=== PATIENT | female | born 1950 | race Caucasian/White ===

== ENCOUNTER 2018-04-10 12:00 | Outpatient (CLI) | payer MEDICARE, OTHER, SELFPAY ==
[2018-04-10 13:12] LABS: TSH 6.25 uIU/mL (0.358-3.74)
== END 2018-04-10 12:20 ==
PROVIDERS: PCP Nurse Practitioner Adult Health; Visit Provider Nurse Practitioner Adult Health
DX: E03.9 Hypothyroidism, unspecified (principal)
CPT/HCPCS: 36415; 84443

== ENCOUNTER 2018-04-16 13:57 | Outpatient (CLI) | payer MEDICARE, OTHER, SELFPAY ==
--- NOTE | 2018-04-16 12:30 | DI.CT_ITS ---
SYMPTOMS/DIAGNOSIS: NEPHROLITHIASIS, N20.0 CT OF THE ABDOMEN AND PELVIS: Small regions of scarring are noted in the right lung base. No acute abnormality is seen. The liver, gallbladder, pancreas and spleen are intact. Innumerable bilateral renal calculi are demonstrated. A small area of radiolucency involving the posterior left renal cortex likely represents a cyst. A left extra-renal pelvis is identified and there is moderate hydronephrosis and hydroureter and there is a 6 x 8 mm calculus in the distal left ureter. The bladder is intact. There is no evidence of right hydronephrosis or hydroureter or ureterolithiasis. There is radiopaque material in a stomach containing fluid and particulate matter. There is no evidence of bowel obstruction. There is nothing to suggest an acute appendix. There is no evidence of free air or free fluid in the intraperitoneal space. The reproductive organs as visualized appear intact. There is a tiny fat containing umbilical hernia. Degenerative changes are noted involving the lower dorsal and lumbar spine. No acute bony abnormality is seen. SUMMARY: There is bilateral nephrolithiasis and moderate left hydronephrosis secondary to a distal left ureteral calculus which measures approximately 6 x 8 mm. Please see the above discussion.
== END 2018-04-16 14:17 ==
PROVIDERS: PCP Nurse Practitioner Adult Health; Visit Provider Urology
DX: N13.30 Unspecified hydronephrosis (principal); N20.0 Calculus of kidney; N20.1 Calculus of ureter
CPT/HCPCS: 74176

== ENCOUNTER 2018-04-23 10:42 | Outpatient (CLI) | payer MEDICARE, OTHER, SELFPAY ==
[2018-04-23 11:15] LABS: Bilirubin Negative (Negative); Blood Trace-intact (Negative); Clarity Cloudy; Glucose Negative (Negative); Ketones Negative (Negative); Leukocyte Esterase Negative (Negative); Nitrite Negative (Negative); Urobilinogen 0.2 EU/dL (Up TO 0.2); pH 8.5 (5-8)
[2018-04-23 11:31] LABS: Bacteria Moderate HPF (Negative); C & S Indicated? C&S Done As Ordered; Casts Negative LPF (Negative); Crystals Moderate Amorphous HPF (Negative); Epithelial Cells Moderate HPF (Negative); Mucus Negative (Negative); Other Cells Few Renal (Negative); WBC 0-2 HPF (0-5)
== END 2018-04-23 11:02 ==
PROVIDERS: PCP Nurse Practitioner Adult Health; Visit Provider Urology
DX: N20.0 Calculus of kidney (principal); Z01.818 Encounter for other preprocedural examination
CPT/HCPCS: 81003; 81015; 87086

== ENCOUNTER 2018-05-19 06:09 | Day surgery (SDC) | payer MEDICARE, OTHER, SELFPAY ==
[2018-05-19 06:27] VITALS: BP 121/62; PULSE 65; RESP 18; TEMP 35.5; O2SAT 96
--- NOTE | 2018-05-19 06:27 | W.COLOREPORT ---
Colonoscopy Report Date of procedure: 05/19/18 Pre-op diagnosis general: Screening colonoscopy Post-op diagnosis procedure note: other (Internal hemorrhoids, transverse polyp) Procedure: Colonoscopy with polypectomy by cold forceps Surgeon: Leticia Starkey Anesthesia proc note operative: MAC (Rachel Figueroa CRNA) Estimated blood loss (mL): 2 Pathology: other (transverse colon polyp) Complications: None Disposition: same day Indications: Mrs. Fall is a 67-year-old female who was seen in the office for a screening colonoscopy. She underwent attempted colonoscopy in February but her prep was not clear. She noted a 2-day prep and is back for a screening colonoscopy. Her last colonoscopy was 2007 and was normal. Risks, benefits and complications were again reviewed with her and she wished to proceed. No guarantees were given or implied. Prep: Other (Mag Citrate and Miralax/Dulcolax) Procedure Start Time: 07:40 Procedure End Time: 08:05 Retraction Time: 13 minutes Findings: Small grade I internal hemorrhoids Small less the 1 cm sessile polyp in the transverse colon Procedure Description: After informed consent was obtained the patient was taken to the procedure room and placed in a left decubitous position. Monitors were applied and a time out was done. The patients name, date of , procedure, allergies to medications and metal in their body was reviewed. The patient was then sedated. Once sedated and comfortable a rectal exam was done. External exam was normal. Internal exam revealed a normal sphincter tone and no palpable masses. The scope was then introduced and retroflexed. Grade I internal hemorrhoids were identified. The scope was then advanced to the cecum without difficulty. The TI and appendiceal orifice were identified. The prep was adequate. The scope was then slowly retracted over 13 minutes back into the rectum. One polyp was removed with cold forceps in the transverse colon. The scope was removed and the patient was woken up and taken back to Same day surgery in stable condition. The patient tolerated the procedure well and there were no immediate complications. Follow up: The patient should follow up in 3-5 years unless they develop changes in bowel habits or other new gastrointestinal complaints.
--- NOTE | 2018-05-19 06:44 | PDOC.DSDIS_ITS ---
Discharge Plan Disposition Patient Disposition: HOME Condition: Good Discharge Details Reason For Visit: SCREENING Attending Provider: Leticia Starkey Primary Care Provider: Jakub Santos Home Meds and New Rx's Prescriptions: Continue indapamide 1.25 mg tablet 1.25 mg PO QAM RF: 0 hydrocodone-acetaminophen 1 EACH tablet 1 tab-cap PO Q6H PRN RF: 0 levothyroxine 75 MCG tablet 75 mcg PO DAILY RF: 0 Buspirone HCl 5 MG tablet 5 mg PO DAILY RF: 0 venlafaxine [Effexor XR] 75 MG capsule,extended release 24hr 75 mg PO DAILY RF: 0 venlafaxine [Effexor XR] 150 MG capsule,extended release 24hr 150 mg PO DAILY RF: 0 potassium chloride [Klor-Con M20] 20 MEQ tablet,ER particles/crystals 20 mg PO DAILY RF: 0 cyclobenzaprine 10 MG tablet 10 mg PO Q8H PRN PRN (Reason: Pain) Qty: 20 RF: 0 Discontinued polyethylene glycol 3350 255 GM powder 255 gm PO as directed for colo Qty: 255 RF: 0 bisacodyl [Correctol] 5 MG tablet 5 mg PO take as directed Qty: 4 RF: 0 Discharge Instructions Instructions: Colonoscopy (DC), Hemorrhoids (DC), Colorectal Polyps (DC) Additional Instructions: Findings: small internal hemorrhoids small, most likely benign polyp Follow up: 10 years ? New Medications: none Please call if you develop: fevers >101.5 Nausea or Vomiting Abdominal pain that is not transient Shortness of breath DAY SURGERY UNIT POST COLONOSCOPY INSTRUCTIONS 1. Because there will be medication in your system for the next 24 hours, you may feel a little sleepy. Your coordination will be affected. Therefore: a. Do not drive or operate dangerous equipment for 24 hours. b. Do not drink alcohol beverages for 24 hours (not even beer). c. Plan to go home and rest for the day. 2. Generally there are no restrictions on your activity after a day or so has gone by, but you may feel a bit fatigued for a few days. 3 After you arrive home you may have a light meal and return to a normal diet as you can tolerate it without feeling sick to your stomach. 4. After surgery, you may feel pain or discomfort. This should be only transient , but if it persists please contact your doctor. 5. If there are any questions regarding the findings of your procedure, please feel free to contact your doctor. 6. If you are unable to contact your doctor with a problem, contact the hospital at [phone]. 7. Continue all your regular medications unless directed otherwise. I understand the above instructions and have no questions. Signature of Patient or Responsible Adult Escort Date/Time Name of Responsible Adult Escort Signature of Nurse Date/Time Activity:: Activity as Tolerated Diet:: As Tolerated Discharge Orders Discharge Orders: Discharge Order (Routine); Ordered 05/19/18 Ordered By: Leticia Starkey DS: Diagnosis Discharge Diagnosis (1) Internal hemorrhoids: Status: Acute (2) Colorectal polyp detected on colonoscopy: Status: Acute
[2018-05-19] MEDS: Lactated Ringers 1,000 ML 80 ML IV (06:45)
--- NOTE | 2018-05-19 07:55 | BOWEL_PTH ---
PATIENT: Flory Fall LOC: [facility] U#:[id number] AGE/SX: 67/F ROOM: RE05/19/[address]: Leticia Starkey MD : [id number] BED: DIS: 05/19/2018 SPEC #: [id number] RECD: 05/19/18 12:53 STATUS: LATISHA REQ #: [id number] BELINDA: 05/19/18 07:[address]: Leticia Starkey DEPT: Surgical Specimen RECD BY: Shannon Staton ENTERED: 05/19/18 12:55 SP TYPE: Bowel OTHR DR: Jakub Santos Tissues: 1 - BIOPSY BOWEL Procedures: GROSS AND MICRO LEVEL 4 Comments: [id number]
[2018-05-19 08:45] VITALS: BP 100/60; PULSE 50; RESP 16; TEMP 35.8; O2SAT 96
== END 2018-05-19 08:45 | disposition home or self-care (01) ==
PROVIDERS: PCP Nurse Practitioner Adult Health; Visit Provider Surgery
PROC: 0DJD8ZZ Inspection of Lower Intestinal Tract, Via Natural or Artificial Opening Endoscopic (ICD-10-PCS; CPT 45378; principal; 2018-05-19 07:30)
DX: Z12.11 Encounter for screening for malignant neoplasm of colon (principal); D12.3 Benign neoplasm of transverse colon; K64.0 First degree hemorrhoids
CPT/HCPCS: 45380; 88305

== ENCOUNTER 2018-05-27 09:22 | Outpatient (CLI) | payer MEDICARE, OTHER, SELFPAY ==
[2018-05-27 10:53] LABS: ALT 31 U/L (12-78); AST 24 U/L (15-37); Alkaline Phosphatase 97 U/L (46-116); Anion Gap 8.5 mmol/L (3-11); BUN 17 mg/dL (7-18); Bilirubin, Total 0.5 mg/dL (0.2-1.0); CO2 30.5 mmol/L (21.0-32.0); CREATININE 0.91 mg/dL (0.55-1.02); Calcium 9.4 mg/dL (8.5-10.1); Chloride 101 mmol/L (98-107); Cholesterol 212 mg/dL (50-200); Glucose 100 mg/dL (70-100); HDL Cholesterol 59 mg/dL (40-60); LDL CHOLESTEROL 135 mg/dL (<100); Potassium 3.4 mmol/L (3.5-5.1); Sodium 140 mmol/L (136-145); TSH (W/Ref FT4) 4.02 uIU/mL (0.358-3.74); Total Protein 7.7 g/dL (6.4-8.2); Triglyceride 99 mg/dL (30-150)
== END 2018-05-27 09:42 ==
PROVIDERS: PCP Nurse Practitioner Adult Health; Visit Provider Nurse Practitioner Adult Health
DX: E78.00 Pure hypercholesterolemia, unspecified (principal); R53.83 Other fatigue; E87.6 Hypokalemia; E03.9 Hypothyroidism, unspecified
CPT/HCPCS: 36415; 80053; 80061; 83721; 84439; 84443

== ENCOUNTER 2018-07-23 15:34 | Outpatient (CLI) | payer MEDICARE, OTHER, SELFPAY ==
[2018-07-23 17:34] LABS: TSH 0.13 uIU/mL (0.358-3.74)
[2018-07-28 17:20] LABS: Thyroid Stimulating Immunoglob <1.0 TSI index (<=1.3)
== END 2018-07-23 15:54 ==
PROVIDERS: PCP Nurse Practitioner Adult Health; Visit Provider Nurse Practitioner Adult Health
DX: E03.9 Hypothyroidism, unspecified (principal)
CPT/HCPCS: 36415; 84443; 84445

== ENCOUNTER 2018-08-25 02:09 | Outpatient (CLI) | payer MEDICARE, OTHER, SELFPAY ==
[2018-08-25 12:08] LABS: TSH 0.23 uIU/mL (0.358-3.74)
== END 2018-08-25 02:29 ==
PROVIDERS: PCP Nurse Practitioner Adult Health; Visit Provider Nurse Practitioner Adult Health
DX: E03.9 Hypothyroidism, unspecified (principal)
CPT/HCPCS: 36415; 84443

== ENCOUNTER 2018-10-19 10:04 | Outpatient (CLI) | payer MEDICARE, OTHER, SELFPAY ==
[2018-10-19 11:42] LABS: Cholesterol 165 mg/dL (50-200); HDL Cholesterol 54 mg/dL (40-60); LDL CHOLESTEROL 95 mg/dL (<100); TSH 0.33 uIU/mL (0.358-3.74); Triglyceride 83 mg/dL (30-150)
== END 2018-10-19 10:24 ==
PROVIDERS: PCP Nurse Practitioner Adult Health; Visit Provider Nurse Practitioner Adult Health
DX: E03.9 Hypothyroidism, unspecified (principal)
CPT/HCPCS: 36415; 80061; 83721; 84443

== ENCOUNTER 2019-03-31 15:07 | Emergency (ER) | payer MEDICARE, OTHER, SELFPAY ==
[2019-03-31 15:09] VITALS: BP 117/94; PULSE 62; RESP 16; TEMP 36.6; O2SAT 99
--- NOTE | 2019-03-31 15:23 | DI.CT_ITS ---
SYMPTOM/DIAGNOSIS: LEFT FLANK PAIN ABDOMINAL AND PELVIC CT: 03/31 CT examination of the abdomen and pelvis was performed without contrast administration. Images obtained through the lung bases are unremarkable. The visualized portions of the liver and spleen appear normal as does the pancreas. Gallbladder and bile ducts are CT normal. Abdominal aorta is of normal diameter. No significant abdominal wall hernia with a tiny fat containing umbilical hernia noted. No abdominal or pelvic adenopathy. Adrenals appear normal bilaterally. Appendix is normal. No evidence of diverticulitis or bowel obstruction. There appears to be some free fluid in the pelvis. There is marked right hydronephrosis and hydroureter. There is an obstructing 6-8 mm in diameter stone in the right mid ureter and there is also a distal right ureteral stone measuring about 4 mm. No left ureteral calcification seen. No left hydronephrosis. Multiple intra renal calculi are noted bilaterally. CONCLUSION: Obstructing stones of the right ureter as described above, severe right hydronephrosis. Multiple bilateral renal calculi.
--- NOTE | 2019-03-31 15:23 | W.ED.GENAD ---
Discharge Plan Disposition Patient Disposition: HOME Condition: Stable Discharge Details Chief Complaint: FlankPain Clinical Impression: Kidney stone Primary Care Provider: Jakub Santos ED Provider: Jeffy Sabillon Home Meds and New Rx's Prescriptions: New ciprofloxacin HCl 500 mg tablet 500 mg PO BID Qty: 14 RF: 0 Continued indapamide 1.25 mg tablet 1.25 mg PO QAM RF: 0 hydrocodone-acetaminophen 1 EACH tablet 1 tab-cap PO Q6H PRN RF: 0 levothyroxine 75 MCG tablet 75 mcg PO DAILY RF: 0 Buspirone HCl 5 MG tablet 5 mg PO DAILY RF: 0 venlafaxine [Effexor XR] 75 MG capsule,extended release 24hr 75 mg PO DAILY RF: 0 venlafaxine [Effexor XR] 150 MG capsule,extended release 24hr 150 mg PO DAILY RF: 0 potassium chloride [Klor-Con M20] 20 MEQ tablet,ER particles/crystals 20 mg PO DAILY RF: 0 cyclobenzaprine 10 MG tablet 10 mg PO Q8H PRN PRN (Reason: Pain) Qty: 20 RF: 0 tamsulosin 0.4 mg Capsule 0.4 mg PO DAILY RF: 0 Discharge Instructions Instructions: Kidney Stones (ED) Additional Instructions: follow up with your urologist next week you can take 1000mg tylenol and 600mg ibuprofen every 6 hours for pain as needed if you develop high fevers, persistent vomit or severe worsening pain return to the emergency department Medical Decision Making 68 yo female with hx of kidney stones comes in with pain in the left flank and oblique area starting today. She had an MRI done on Friday at [facility] [place] which showed hydronephrosis on the right, she was having pain on that side at the time that has resolved. She states her pain she had earlier did feel like prior stones she has had. She took 1/2 tablet of hydrocodone and pain is now gone and hasno tenderness on abdominal exma to suggest entities such as diverticulitis, sbo or other surgical pathology. I discussed with her that this is likely a stone given her pain has gone away, she would like to have a CT regardless given the pain is now on the left and she was told by her kidney specialist she needs a CT. Will order this and monitor. pt remains pain free, actually has 2 obstructing stones in the right with hydro. Does have evidence of uti, no fevers or other symptoms to suggest sepsis due to infected stone. she has a urologist at [facility], I recommended following up with them next week and had the images pushed to [facility]. She was given return precations, already has hydrocodone and denies any need for new meds Differential Diagnosis kidney stone, constipation, diverticulitis Imaging Data Radiologic Study: Attestation: I personally reviewed and interpreted this imaging study as follows: Imaging: CT Scan Radiologist's impression: IMPRESSION: Severe right hydroureteronephrosis with obstructive 6 mm stone in the mid right ureter. 4 mm stone seen in the distal right ureter. Small amount of pelvic ascites. Mild constipation. Bilateral nonobstructive renal stones measuring up to 4 mm. Lab Data Lab results reviewed: Yes I reviewed the patient's lab results. HPI General Mode of arrival: ambulatory. Date/Time Provider Initiated Documentation: 03/31/19 15:07. Limitations to Documentation: no limitations. Information obtained by: patient. History of Present Illness 68 year old F presents to the emergency department with the chief complaint of left flank pain, described as moderate, Quality is described as stabbing, No relieving factors improve symptom(s), No exacerbating factors reported . Patient did receive the following treatments prior to arrival, other (hydrocodone) Related Data Home Medications Medication Instructions Recorded Confirmed cyclobenzaprine 10 mg PO Q8H PRN PRN #20 tab 04/30/17 03/31/19 potassium chloride [Klor-Con M20] 20 mg PO DAILY 04/30/17 03/31/19 venlafaxine [Effexor XR] 75 mg PO DAILY 04/30/17 03/31/19 venlafaxine [Effexor XR] 150 mg PO DAILY 04/30/17 03/31/19 Buspirone HCl 5 mg PO DAILY NS 03/06/18 03/31/19 hydrocodone-acetaminophen 1 tab-cap PO Q6H PRN tab-cap NS 03/06/18 03/31/19 levothyroxine 75 mcg PO DAILY tab-cap NS 03/06/18 03/31/19 indapamide 1.25 mg tablet 1.25 mg PO QAM 05/01/18 03/31/19 ciprofloxacin HCl 500 mg PO BID #14 tab 03/31/19 tamsulosin 0.4 mg PO DAILY 03/31/19 03/31/19 Previous Rx's Medication Instructions Recorded cyclobenzaprine 10 mg PO Q8H PRN PRN #20 tab 04/30/17 ciprofloxacin HCl 500 mg PO BID #14 tab 03/31/19 Allergies Allergy/AdvReac Type Severity Reaction Status Date / Time No Known Allergies Allergy Unverified 05/19/18 06:18 General Stated Complaint: FlankPain KEEGAN: 3 Review of Systems Review of Systems All systems reviewed & are unremarkable except as noted in HPI and below Constitutional Denies chills, Denies fever(s) and Denies weakness Cardiovascular Denies chest pain and Denies dyspnea Respiratory Denies cough and Denies dyspnea Gastrointestinal Denies vomiting Musculoskeletal Denies joint swelling Neurologic Denies weakness [facility] Surgical History (Updated 05/29/18 @ 09:25 by Cynthia Carreon RN) Colonoscopy planned (Acute ~05/19/18) Social History Smoking/Tobacco Use Status: Never Alcohol Intake: never Drug use: Daily Substance use type: marijuana Do you feel safe at home: Yes Do you feel safe in your relationship?: Yes Exam Const General: no acute distress Orientation: alert HENMT Head: normal to inspection Ears: external ears normal General nose exam: external nose normal Mouth: moist mucous membranes Eyes General: appearance normal, both eyes and all related structures Neck Neck: normal visual inspection Resp Effort & Inspection: normal respiratory effort and able to speak in complete sentences Cardio Rate: regular rate GI Palpation: soft Skin General skin exam: no rashes or lesions noted Neuro General: alert and oriented x3 Extrem General: normal to inspection Psych Mental Status: mental status grossly normal Course Vital Signs Temperature 36.6 C 03/31/19 15:09 Pulse 62 03/31/19 15:09 Respiratory Rate 16 03/31/19 15:09 Blood Pressure 117/94 H 03/31/19 15:09 Pulse Oximetry 99 03/31/19 15:09 Temperature 36.6 C 03/31/19 15:09 Temperature Source Skin 03/31/19 15:09 Pulse 62 03/31/19 15:09 Respiratory Rate 16 03/31/19 15:09 Respiratory Effort Non-Labored 03/31/19 15:14 Blood Pressure 117/94 H 03/31/19 15:09 Blood Pressure Position Sitting 03/31/19 15:09 Pulse Oximetry 99 03/31/19 15:09 Oxygen Delivery Method Room Air 03/31/19 15:09 Oxygen Flow Rate 0 03/31/19 15:09 Pain Level 2 03/31/19 15:09 Comment 03/31/19 15:09
[2019-03-31 16:13] LABS: Bilirubin Negative (Negative); Blood Trace-intact (Negative); Clarity Cloudy (Clear); Glucose Negative (Negative); Ketones Negative (Negative); Leukocyte Esterase Moderate (Negative); Nitrite Positive (Negative); Specific Gravity 1.015 (1.005-1.025); Urobilinogen 0.2 EU/dL (Up TO 0.2); pH 8.5 (5-8)
[2019-03-31 16:29] LABS: Bacteria Many HPF (Negative); C & S Indicated? Yes; Casts Negative LPF (Negative); Crystals Negative HPF (Negative); Epithelial Cells Few HPF (Negative); Mucus Negative (Negative); RBC 20-50 (0-2); WBC >50 HPF (0-5)
--- NOTE | 2019-03-31 16:56 | DI.VRAD_ITS ---
EXAM: CT Abdomen and Pelvis Without Contrast EXAM DATE/TIME: 03/31/2019 4:37 PM CLINICAL HISTORY: 68 years old, female; Other: Left flank pain TECHNIQUE: Imaging protocol: Computed tomography of the abdomen and pelvis without contrast. Radiation optimization: All CT scans at this facility use at least one of these dose optimization techniques: automated exposure control; mA and/or kV adjustment per patient size (includes targeted exams where dose is matched to clinical indication); or iterative reconstruction. COMPARISON: No relevant prior studies available. FINDINGS: Liver: Normal. No mass. Gallbladder and bile ducts: Normal. No calcified stones. No ductal dilation. Pancreas: Normal. No ductal dilation. Spleen: Normal. No splenomegaly. Adrenals: Normal. No mass. Kidneys and ureters: Severe right hydroureteronephrosis with obstructive 6 mm stone in the mid right ureter. 4 mm stone seen in the distal right ureter. Bilateral nonobstructive renal stones measuring up to 4 mm. Stomach and bowel: Mild constipation. Appendix: Unable to identify the appendix. Intraperitoneal space: Small amount of pelvic ascites. Vasculature: Aortic atherosclerosis. Lymph nodes: Unremarkable. No enlarged lymph nodes. Bladder: Unremarkable as visualized. Reproductive: Unremarkable as visualized. Bones/joints: Degenerative changes in the spine. Soft tissues: Small umbilical hernia containing fat, uncomplicated. IMPRESSION: Severe right hydroureteronephrosis with obstructive 6 mm stone in the mid right ureter. 4 mm stone seen in the distal right ureter. Small amount of pelvic ascites. Mild constipation. Bilateral nonobstructive renal stones measuring up to 4 mm. Dictated and Authenticated by: Javier Ruvalcaba MD. Ordering:FRANKY Bardales MD
[2019-03-31 17:24] VITALS: BP 121/76; PULSE 62; RESP 20; TEMP 37; O2SAT 96
== END 2019-03-31 17:21 | disposition home or self-care (01) ==
PROVIDERS: Emergency Provider Emergency Medicine; PCP Nurse Practitioner Adult Health
DX: N39.0 Urinary tract infection, site not specified (principal); N13.2 Hydronephrosis with renal and ureteral calculous obstruction; Z87.442 Personal history of urinary calculi
CPT/HCPCS: 87077; 99284; 74176; 81003; 81015; 87086; 87186

== ENCOUNTER 2021-02-08 13:23 | Outpatient (REF) | payer MEDICARE, OTHER, SELFPAY ==
[2021-02-08 15:41] LABS: Mono Screening Negative (Negative)
[2021-02-09 12:06] LABS: Lyme Ab w Rflx to Lyme Confirm Negative (Negative)
== END 2021-02-08 13:24 | disposition home or self-care (01) ==
LOC: LBN 13:23
PROVIDERS: PCP Nurse Practitioner Adult Health; Visit Provider Physician Assistant Medical
DX: R53.83 Other fatigue (principal)
CPT/HCPCS: 86308; 86618

== ENCOUNTER → 2023-12-24 10:40 | Outpatient (CLI) | payer MEDICARE, OTHER, SELFPAY ==
--- NOTE | 2023-12-24 12:46 | DI.RAD_ITS ---
Exam(s) XR KNEE LT 4V AP,LAT,ANTWON,PAT EXAM: XR KNEE LT 4V AP,LAT,ANTWON,PAT CLINICAL HISTORY: PAIN LEFT KNEE M25.562. TECHNIQUE: 2D digital imaging was performed of the left knee. Four images were obtained. Merchant, AP, lateral and PA tunnel views were obtained. COMPARISON: No exams were available for comparison FINDINGS: BONES: No acute fracture is present. No bony destructive lesion is seen. There is an enthesophyte at the anterior patella. JOINTS: There is mild narrowing of the medial femoral tibial joint. Small osteophytes are seen at th e posterior patella. No joint effusion is seen. No loose body. SOFT TISSUE: Normal. IMPRESSION: Mild degenerative changes of the knee. DATA REPOSITORY: RADIATION DOSE DELIVERED:
== END ==
PROVIDERS: PCP Nurse Practitioner Adult Health
DX: M25.562 Pain in left knee (principal)
CPT/HCPCS: 73564

== ENCOUNTER 2025-01-24 14:06 | Emergency (ER) | payer MEDICARE, OTHER, SELFPAY ==
[2025-01-24 14:09] VITALS: BP 144/81; PULSE 60; RESP 16; TEMP 36.3; O2SAT 94
--- NOTE | 2025-01-24 14:27 | W.ED.GENAD ---
Discharge Plan Disposition Patient Disposition: Home Condition: Stable Discharge Details Clinical Impression: Fracture of wrist Primary Care Provider: Alisson,[facility] ED Provider: Christine Keating Home Meds and New Rx's Prescriptions: New hydrocodone-acetaminophen 5-325 mg tablet 1 tab PO Q8H PRNQty: 10 0RF No Action indapamide 1.25 mg tablet 1.25 mg PO QAM hydrocodone-acetaminophen 1 EACH tablet 1 tab-cap PO Q6H PRN levothyroxine 75 MCG tablet 75 mcg PO DAILY Buspirone HCl 5 MG tablet 5 mg PO DAILY venlafaxine [Effexor XR] 75 MG capsule,extended release 24hr 75 mg PO DAILY potassium chloride [Klor-Con M20] 20 MEQ tablet,ER particles/crystals 20 mg PO DAILY tamsulosin 0.4 mg Capsule 0.4 mg PO DAILY raloxifene 60 mg tablet 60 mg PO DAILY Discharge Instructions Instructions: Forearm and Wrist Fractures ED, How to care for a splint Additional Instructions: Please follow-up with orthopedic clinic back home in [place]. For milder pain take Tylenol and ibuprofen. Apply an ice pack to help minimize pain and swelling. I have sent a prescription for narcotic medication to the pharmacy in [facility]. In the meantime while in town if pain does get worse or develop any new or concerning symptoms return to the emergency department for reevaluation. HPI General Date/Time Provider Initiated Documentation: 01/24/25 14:09. HPI Narrative: The patient is a 74-year-old female with prior history of kidney stones who comes the emergency department for right wrist injury. The patient reports that just prior to emergency room arrival she stepped out of her vehicle onto an uneven ground which caused her to lose balance. Reports that she took a misstep and fell. Reports he is not really sure how she injured her wrist but maybe landed on it. Reports that she thinks she twisted her ankle also. Denies hitting her head or any loss of consciousness. Reports since then her right wrist has been bothering her. Reports her right ankle hurts a little bit but not too bad. Reports she was able to get up on her own and ambulated on scene. Denies taking any blood thinning medication. Denies numbness or tingling sensation to her right foot or right wrist. Reports that she has injured her right wrist before but never required surgery and never significantly injuring it. Patient is accompanied by her friend who reports the patient is otherwise acting at baseline. Denies injury elsewhere and states she was at her baseline health prior. Reports she did take a leftover hydrocodone just prior to emergency room arrival. Related Data Home Medications ?Medication ?Instructions ?Recorded ?Confirmed potassium chloride 20 mEq 20 mg PO DAILY 04/30/17 01/24/25 tablet,extended release(part/cryst) (Klor-Con M) Held on 01/24/25. Instructions: Changed by Provider venlafaxine 75 mg capsule,extended 75 mg PO DAILY 04/30/17 01/24/25 release 24 hr (Effexor XR) Buspirone HCl 5 mg PO DAILY 03/06/18 01/24/25 hydrocodone 5 mg-acetaminophen 325 1 tab-cap PO Q6H PRN 03/06/18 01/24/25 mg tablet levothyroxine 75 mcg tablet 75 mcg PO DAILY 03/06/18 01/24/25 indapamide 1.25 mg tablet 1.25 mg PO QAM 05/01/18 01/24/25 Held on 01/24/25. Instructions: Changed by Provider tamsulosin 0.4 mg capsule 0.4 mg PO DAILY 03/31/19 01/24/25 Held on 01/24/25. Instructions: Changed by Provider hydrocodone 5 mg-acetaminophen 325 1 tab PO Q8H PRN #10 tabs 01/24/25 mg tablet raloxifene 60 mg tablet 60 mg PO DAILY 01/24/25 01/24/25 Previous Rx's ?Medication ?Instructions ?Recorded hydrocodone 5 mg-acetaminophen 325 1 tab PO Q8H PRN #10 tabs 01/24/25 mg tablet Allergies Allergy/AdvReac Type Severity Reaction Status Date / Time No Known Allergies Allergy Unverified 01/24/25 14:14 General Stated Complaint: Orthopedic KEEGAN: 4 Review of Systems Narrative: Review of systems are negative except as mentioned. Exam Narrative Exam Narrative: General appearance: The patient is alert, has no immediate need for airway protection and no signs of toxicity. HEENT: Pupils are round, equal and reactive. Oral mucosal membranes are moist. Neck: No midline C-spine tenderness is noted to palpation. Respiratory: There are no retractions. Lungs are clear to auscultation. Cardiovascular: Regular in rate and rhythm. Radial pulses are intact and equal. Gastrointestinal: The abdomen is soft and nondistended with normal bowel sounds. Nontender to palpation throughout. Neurological: The patient is alert, awake and oriented x 3. Patient has intact sensation to light touch throughout the entire right upper extremity, right hand and the right foot. Extremities: No tenderness is noted to palpation and range of motion testing to the left lower extremity, left upper extremity, right shoulder, right elbow, right hip, right knee. She has no tenderness to palpation to the right thigh, leg, foot. Patient has tenderness palpation along the right lateral malleolus without limitation range of motion testing in all planes. She has strong right dorsalis pedis pulse and intact sensation to light touch throughout the entire right foot. The entire right foot is nontender to palpation throughout. The patient has obvious deformity to the right wrist. The range of motion testing to the right wrist is deferred secondary to discomfort. The right hand is nontender to palpation throughout the particular along the right anatomic snuffbox. All the digits of the right hand are nontender to palpation. She has intact under water assistant strength on the right. She has strong right radial pulse. Course Vital Signs Vital signs: Vital Signs Temperature 36.3 C L 01/24/25 14:09 Pulse 60 01/24/25 14:09 Respiratory Rate 16 01/24/25 14:09 Blood Pressure 144/81 H 01/24/25 14:09 Pulse Oximetry 94 01/24/25 14:09 Temperature 36.3 C L 01/24/25 14:09 Temperature Source Oral 01/24/25 14:09 Pulse 60 01/24/25 14:09 Respiratory Rate 16 01/24/25 14:09 Blood Pressure 144/81 H 01/24/25 14:09 Pulse Oximetry 94 01/24/25 14:09 Oxygen Delivery Method Room Air 01/24/25 14:09 Oxygen Flow Rate 0 01/24/25 14:09 Pain Level 5 01/24/25 14:09 Medical Decision Making I informed the patient of my recommendation for imaging studies. She agrees to imaging study of the right wrist and declined x-ray of her right ankle. She declined pain medication currently. She arrives with a ring on her right ring finger. We will try to remove this before imaging studies are obtained. The patient is found to have distal radial fracture with impaction and dorsal angulation and has ulnar styloid fracture. I did consult with Ortho on-call, Dr. Jackman. Recommended reduction. I did explain this to the patient and need for reduction. Dr. Jackman has been in to see the patient and reduce the patient's fracture himself. Recommended repeat x-ray and outpatient follow-up with business support specialist back home in [place]. We will give the patient a copy of her imaging studies. I asked her to take [id number] pain medication as needed but a prescription is sent also to her preferred pharmacy for more pain medication that she can take for worsening pain. She does have 2 prescription pills of [place] left and did request for more in the meantime. She is asked to apply an ice pack to help minimize pain and swelling as well. I told her in the meantime if she does get worse or develop any new or worsening symptoms such as uncontrollable pain, numbness, ting sensation, etc. to return to the emergency department immediately otherwise follow-up with business support specialist back home. Imaging Data Radiologic Study: Imaging: X-Ray (Wrist) Radiologist's impression: Distal radial fracture with some impaction and dorsal angulation. Ulnar styloid fracture. Radiologic Study #2: Imaging: X-Ray (Wrist x-ray, post reduction) Radiologist's impression: A cast has been placed. The previously noted posterior angulation of the distal radial fracture has been corrected. Ulnar styloid fracture again noted. PFSH All Active Problems (Updated 01/24/25 @ 17:16 by Christine Keating DO) Fracture of wrist (Acute) Colonoscopy planned (Acute ~05/19/18) Colorectal polyp detected on colonoscopy (Acute) Internal hemorrhoids (Acute) Encounter for screening colonoscopy (Acute) Current Visit YES Social History Smoking/Tobacco Use Status: Never Smoking risk assessment performed?: Yes Alcohol Intake: current Alcohol Intake frequency: a few times a week Drug use: Daily Substance use type: marijuana Housing: house Do you feel safe at home: Yes Do you feel safe in your relationship?: Yes
--- NOTE | 2025-01-24 15:06 | DI.RAD_ITS ---
Exam(s) XR WRIST RT COMPLETE EXAM: XR WRIST RT COMPLETE CLINICAL HISTORY: pain after a fall. TECHNIQUE: 2D digital imaging was performed. Three views. COMPARISON: No exams were available for comparison FINDINGS: BONES: There is a fracture extending transversely through the distal radial metaphysis. There is dorsal angulation and mild impaction. The ulnar styloid is also fractured. Carpal bones appear intact. No bony destructive lesion is seen. JOINTS: The carpal bones are normally aligned. SOFT TISSUE: Swelling around the wrist. IMPRESSION: Distal radial fracture with some impaction and dorsal angulation. Ulnar styloid fracture. DATA REPOSITORY: RADIATION DOSE DELIVERED:
[2025-01-24] MEDS: Lidocaine 2% Multi-Dose 20 ML VIAL IJ (15:30)
--- NOTE | 2025-01-24 17:00 | DI.RAD_ITS ---
Exam(s) XR WRIST RT LIMITED EXAM: XR WRIST RT LIMITED INDICATION: post reduction. COMPARISON: CR XR WRIST RT COMPLETE from 01/24/2025 TECHNIQUE: 2D digital imaging was performed. Two views. FINDINGS: A cast has been placed. The previously noted posterior angulation of the distal radial fracture has been corrected. Ulnar styloid fracture again noted. DATA REPOSITORY: RADIATION DOSE DELIVERED:
--- NOTE | 2025-01-24 20:50 | OCONE_ITS ---
Date of service: 01/24/25 Time of Service: 16:30 History of Present Illness History of Present Illness Chief Complaint: Right Wrist Fracture Narrative: Flory is a 74 year old right hand dominant active female who had a fall onto an outstretched right hand earlier today. She lost her balance when getting out the car and landed awkwardly. She had immediate pain and some deformity of the right wrist. She is right hand dominant. She has never had significant injury or surgery to the right hand. She denies numbness or tingling. No head trauma. Consults Consult date: 01/24/25 Requesting physician: Christine Keating Consult Reason Right Wrist Fracture Assessment and Plan Assessment and plan (1) Fracture of right distal radius: Status: Acute Assessment and plan: Flory is a 74-year-old active female who unfortunately suffered a fracture of her right wrist. This is a primary extra-articular fracture with some dorsal displacement. I recommended a closed reduction today. Hematoma block was obtained and she was placed in finger traps and direct manipulation was performed of the fracture. Postreduction x-ray showed improvement to a neutral distal radius position with maintained radial height and inclination. This likely will not need any surgery as this primarily are extra-articular. However, need to be followed closely. I recommend x-rays in a week with eventual transition to a cast or cast like device likely for up to 6 weeks followed by bracing. Is possible surgery may be necessary at this moves or settles. She will be traveling back to [place] later this week and will follow- up in [place]. Review of Systems All systems reviewed & are unremarkable except as noted in HPI and below PFSH All Active Problems (Updated 01/24/25 @ 21:26 by Hamilton Jackman MD) Fracture of right distal radius (Acute) Fracture of wrist (Acute) Colonoscopy planned (Acute ~05/19/18) Colorectal polyp detected on colonoscopy (Acute) Internal hemorrhoids (Acute) Encounter for screening colonoscopy (Acute) Current Visit YES Social History Smoking/Tobacco Use Status: Never Smoking risk assessment performed?: Yes Alcohol Intake: current Alcohol Intake frequency: a few times a week Drug use: Daily Substance use type: marijuana Housing: house Do you feel safe at home: Yes Do you feel safe in your relationship?: Yes Exam Narrative Exam Narrative: Sitting up in the whelchair. NAD. AAOx3. Head NC/AT. R wrist with some dorsal prominence. Swelling noted around the wrist. No break in the skin. +FPL/EPL/IO SILT M/R/U Palpable radial pulse Results Last Vital Signs Temp 36.3 C L 01/24/25 14:09 Pulse 60 01/24/25 14:09 Resp 16 01/24/25 14:09 BP 144/81 H 01/24/25 14:09 Pulse Ox 94 01/24/25 14:09 Imaging Imaging Studies: Xray of the right wrist shows a dorsally displaced extra-articualr distal radius fracture with approximately 20 degrees of dorsal displacement. Procedures Orthopedic Fracture Reduction Right Wrist: Time out performed: Yes Side: right Fracture reduction location: radius Analgesia: hematoma block Technique: direct manipulation and finger traps Post-reduction x-rays demonstrate: acceptable reduction Post-reduction neuro exam: intact Post-reduction vascular exam: intact Splint applied: Yes (clam shell splint) Patient tolerated procedure: well
== END 2025-01-24 18:16 | disposition home or self-care (01) ==
PROVIDERS: Emergency Provider Emergency Medicine
DX: S59.291A Other physeal fracture of lower end of radius, right arm, initial encounter for closed fracture (principal); S52.614A Nondisplaced fracture of right ulna styloid process, initial encounter for closed fracture; V48.4XXA Person boarding or alighting a car injured in noncollision transport accident, initial encounter
CPT/HCPCS: 99283; 25605; 73100; 73110; J2003